=== PATIENT | male | born 1995 | race Two or more races ===

== ENCOUNTER 2024-07-04 21:04 | Inpatient (IN) | payer OTHER ==
[~2024-07-04] VITALS: Ht 182.9 cm; Wt 88.6 kg
[2024-07-05] VITALS (9 sets, daily range): BP systolic 113–125; BP diastolic 64–78; PULSE 50–98; RESP 18–20; TEMP 97.9–98.4; O2SAT 96–100
[2024-07-05] MEDS ORDERED: 0.9% SODIUM CHLORIDE 15 ML NEB SOLUTION NEB ONE (00:26)
[2024-07-05 00:27] LABS: COVID AG,FIA SOURCE NASAL SWAB
[2024-07-05] MEDS: IPRATROPIUM BROMIDE 0.5 MG/2.5 ML NEB SOLUTION NEB ONE (00:28)
[2024-07-05] MEDS: ALBUTEROL SULFATE 2.5 MG/0.5 ML 5 ML NEB SOLUTION NEB ONE (00:28)
[2024-07-05] MEDS: EPINEPHrine 1:1,000 [1 MG/ML] VIAL IM ONE (00:44)
[2024-07-05] MEDS: MethylPREDNISolone SOD SUCC 125 MG/2 ML VIAL IVP ONE (00:44)
[2024-07-05 00:47] LABS: SARS-COV2 (COVID) ANTIGEN,FIA Negative (Negative)
[2024-07-05 00:53] LABS: INFLUENZA TYPE A NEGATIVE FOR TYPE A (NEGATIVE); INFLUENZA TYPE B NEGATIVE FOR TYPE B (NEGATIVE)
[2024-07-05 01:10] LABS: B-TYPE NATRIURETIC PEPTIDE < 5 pg/mL (0-100)
[2024-07-05 01:16] LABS: TROPONIN I-HIGH SENSITIVITY 5 ng/L (<76)
[2024-07-05 03:32] LABS: BASOPHILS % (AUTO) 0.2 % (0.0-2.0); EOSINOPHILS % (AUTO) 1.9 % (1.0-6.0); HEMATOCRIT 44.7 % (41-53); HEMOGLOBIN 14.9 g/dL (13.5-17.5); LYMPHOCYTES # (AUTO) 1.1 K/uL (1.0-4.8); LYMPHOCYTES % (AUTO) 7.7 % (22.0-44.0); MEAN CORPUSCULAR HEMOGLOBIN 28.1 pg (26.0-34.0); MEAN CORPUSCULAR HGB CONC 33.3 G/dL (31.0-37.0); MEAN CORPUSCULAR VOLUME 84 fL (80-100); MONOCYTES # (AUTO) 0.3 K/uL (0.1-1.0); MONOCYTES % (AUTO) 2.4 % (2.0-9.0); PLATELET COUNT (AUTO) 236 K/uL (150-450); RED CELL DISTRIBUTION WIDTH 13.7 % (11.5-14.5); WHITE BLOOD COUNT (AUTO) 13.7 K/uL (4.5-11.0)
[2024-07-05 03:34] LABS: NEUTROPHILS % (AUTO) 87.8 % (40.0-70.0)
[2024-07-05 03:41] LABS: ANION GAP 4 mmol/L (8-16); CALCIUM, TOTAL 8.7 mg/dL (8.8-10.5); CARBON DIOXIDE 30 mmol/L (22-29); CHLORIDE 103 mmol/L (98-107); CREATININE 1.03 mg/dL (0.60-1.30); GLOMERULAR FILTR. RATE CALC > 60 mL/min (>60); GLUCOSE,RANDOM 150 mg/dL (70-110); POTASSIUM 3.6 mmol/L (3.5-5.1); SODIUM SERUM 137 mmol/L (136-145); UREA NITROGEN, BLOOD 7 mg/dL (7-18)
[2024-07-05] MEDS ORDERED: ONDANSETRON HCL 4 MG/2 ML VIAL IVP PRN (13:45)
[2024-07-05] MEDS ORDERED: ZOLPIDEM TARTRATE 5 MG TABLET PO PRN (13:45)
[2024-07-05] MEDS ORDERED: MORPHINE SULFATE 2 MG/ML SYRINGE IVP PRN (13:45)
[2024-07-05] MEDS ORDERED: MAGNESIUM HYDROXIDE SUSPENSION 30 ML UDCUP PO PRN (13:45)
[2024-07-05] MEDS ORDERED: ACETAMINOPHEN 325 MG TABLET PO PRN (13:45)
[2024-07-05] MEDS ORDERED: BISACODYL 10 MG RECTAL RECTAL SUPPOSITORY PR PRN (13:45)
[2024-07-05] MEDS ORDERED: IPRATROPIUM BROMIDE 0.5 MG/2.5 ML NEB SOLUTION NEB PRN (13:45)
[2024-07-05] MEDS: ALBUTEROL SULFATE 2.5 MG/0.5 ML NEB SOLUTION NEB SCH (14:00)
[2024-07-05] MEDS: IPRATROPIUM BROMIDE 0.5 MG/2.5 ML NEB SOLUTION NEB SCH (15:00)
[2024-07-05] MEDS: OxyCODONE HCL/ACETAMINOPHEN 5-325 MG TABLET PO PRN (15:34)
[2024-07-05] MEDS: HEPARIN SODIUM,PORCINE 5,000 UNITS/ML VIAL SQ SCH (16:02)
[2024-07-05] MEDS: MethylPREDNISolone SOD SUCC 125 MG/2 ML VIAL IVP SCH (17:06)
[2024-07-05] MEDS: DOCUSATE SODIUM 100 MG CAPSULE PO SCH (20:35)
[2024-07-06] VITALS (17 sets, daily range): BP systolic 113–129; BP diastolic 60–88; PULSE 43–95; RESP 18–20; TEMP 97.5–98.8; O2SAT 92–100
[2024-07-06] MEDS: ALBUTEROL SULFATE 2.5 MG/0.5 ML NEB SOLUTION NEB PRN (02:43)
[2024-07-06 03:07] LABS: HEPATITIS C AB (EIA) Non Reactive (Non Reactive)
[2024-07-06] MEDS: PANTOPRAZOLE SODIUM 40 MG DR TABLET PO SCH (08:20)
[2024-07-07] VITALS (12 sets, daily range): BP systolic 114–126; BP diastolic 63–75; PULSE 63–95; RESP 18–19; TEMP 97.8–98.2; O2SAT 93–100
[2024-07-07] MEDS: MethylPREDNISolone SOD SUCC 40 MG/ML VIAL IVP SCH (06:31)
[2024-07-07] MEDS ORDERED: PRED-554 PO (13:05)
[2024-07-07] MEDS ORDERED: ALBU18HF12 IH (13:05)
== END 2024-07-07 15:00 | disposition home or self-care (01) | DRG 189 ==
LOC: EMS 21:04 → EDH 07-05 08:18 → 5S 07-05 11:00
PROVIDERS: ADMIT Hospitalist; ATTEND Hospitalist
DX: J96.01 Acute respiratory failure with hypoxia (principal); J44.1 Chronic obstructive pulmonary disease with (acute) exacerbation; J45.901 Unspecified asthma with (acute) exacerbation; J98.11 Atelectasis; Z20.822 Contact with and (suspected) exposure to COVID-19; D72.829 Elevated white blood cell count, unspecified; F17.210 Nicotine dependence, cigarettes, uncomplicated
CPT/HCPCS: 71045; 71250; 80048; 83880; 84484; 85025; 86803; 87340; 87804; 93005; 94640; 94644; 96372; 96374; 99285; J0171; J1644; J2919; 36415-L1; 36415-TC; J7613

== ENCOUNTER 2025-03-05 19:48 | Inpatient (IN) | payer OTHER ==
[~2025-03-05] VITALS: Ht 185.4 cm; Wt 86.3 kg
[~2025-03-05 19:48] MED LIST: ALBU18HF12 IH; PRED-554 PO
[2025-03-05 21:05] LABS: COVID AG,FIA SOURCE NASAL SWAB
[2025-03-05 21:42] LABS: SARS-COV2 (COVID) ANTIGEN,FIA Negative (Negative)
[2025-03-05 22:10] LABS: PLATELET COUNT (AUTO) 330 K/uL (150-450); RED BLOOD CELL COUNT(AUTO) 5.35 MIL/uL (4.50-5.90); RED CELL DISTRIBUTION WIDTH 13.5 % (11.5-14.5); WHITE BLOOD COUNT (AUTO) 14.9 K/uL (4.5-11.0)
[2025-03-05 22:19] LABS: CALCIUM, TOTAL 9.5 mg/dL (8.8-10.5); CREATININE 1.00 mg/dL (0.60-1.30); GLOMERULAR FILTR. RATE CALC > 60 mL/min (>60); GLUCOSE,RANDOM 101 mg/dL (70-110); SODIUM SERUM 138 mmol/L (136-145); UREA NITROGEN, BLOOD 10 mg/dL (7-18)
[2025-03-06] MEDS ORDERED: ZOLPIDEM TARTRATE 10 MG TABLET PO PRN (00:45)
[2025-03-06 01:33] VITALS: BP 132/71; PULSE 67; RESP 18; TEMP 98.2; O2SAT 99
[2025-03-06 01:34] VITALS: BP 132/71; PULSE 67; RESP 18; TEMP 98.2; O2SAT 99
[2025-03-06] MEDS ORDERED: INFLUENZA VIRUS VACCINE TVS (6MO+) 2025-26/PF 45 MCG/0.5 ML SYRINGE IM. ONE (03:45)
[2025-03-06 08:30] VITALS: BP 101/68; PULSE 64; RESP 18; TEMP 97.5; O2SAT 98
[2025-03-06 20:24] VITALS: BP 126/77; PULSE 86; RESP 18; TEMP 97.6; O2SAT 99
[2025-03-06 22:50] VITALS: RESP 18
[2025-03-07] MEDS: LORazepam 2 MG/ML VIAL IM ONE (07:58)
[2025-03-07 09:18] VITALS: BP 140/68; PULSE 17; RESP 17; TEMP 98; O2SAT 99
[2025-03-07 20:04] VITALS: RESP 16
[2025-03-08 09:54] VITALS: RESP 16
[2025-03-08] MEDS: LORazepam 2 MG/ML VIAL IM ONE (13:28)
[2025-03-08 20:00] VITALS: RESP 18
[2025-03-09 12:25] VITALS: BP 121/91; PULSE 95; RESP 16; TEMP 97.7; O2SAT 98
[2025-03-09 21:38] VITALS: RESP 18
[2025-03-10 07:25] LABS: ALCOHOL, URINE DRUG SCREEN NEGATIVE (NEGATIVE); AMPHET/METH SCREEN,URINE NEGATIVE (NEGATIVE); BARBITURATE SCREEN, URINE NEGATIVE (NEGATIVE); CANNABINOID SCREEN,URINE POSITIVE (NEGATIVE); COCAINE SCREEN,URINE NEGATIVE (NEGATIVE); METHADONE SCREEN, URINE NEGATIVE (NEGATIVE)
[2025-03-10 07:26] LABS: APPEARANCE,URINE HAZY (CLEAR); GLUCOSE, URINE (UA) NEGATIVE (NEGATIVE); LEUKOCYTE ESTERASE ,URINE NEGATIVE (NEGATIVE); NITRATE,URINE NEGATIVE (NEGATIVE); OCCULT BLOOD,URINE NEGATIVE (NEGATIVE); PH,URINE DRUG SCREEN 7.5 (5.0-8.0); SPECIFIC GRAVITIY, URINE 1.020 (1.003-1.030)
[2025-03-10 08:09] VITALS: BP 130/83; PULSE 92; RESP 18; TEMP 97.9; O2SAT 99
[2025-03-10] MEDS ORDERED: RISP-31 PO (16:50)
== END 2025-03-10 18:24 | disposition home or self-care (01) | DRG 885 ==
LOC: EMS 19:48 → 3EI 03-06 00:51 → 3EC 03-07 13:36
PROVIDERS: ADMIT Psychiatry & Neurology Child & Adolescent Psychiatry; ATTEND Psychiatry & Neurology Child & Adolescent Psychiatry
PROC: GZHZZZZ Group Psychotherapy (ICD-10-PCS; principal; 2025-03-06)
PROC: GZ58ZZZ Individual Psychotherapy, Cognitive-Behavioral (ICD-10-PCS; 2025-03-06)
PROC: GZ56ZZZ Individual Psychotherapy, Supportive (ICD-10-PCS; 2025-03-06)
DX: F29 Unspecified psychosis not due to a substance or known physiological condition (principal); F17.210 Nicotine dependence, cigarettes, uncomplicated; J45.909 Unspecified asthma, uncomplicated; F20.9 Schizophrenia, unspecified; Z20.822 Contact with and (suspected) exposure to COVID-19; Z79.899 Other long term (current) drug therapy
CPT/HCPCS: 80048; 80307; 81003; 85025; 99285; G0480; J1200; J1630; J2060